=== PATIENT | female | born 1940 | race Caucasian/White ===

== ENCOUNTER → 2019-11-02 15:59 | Outpatient (CLI) | payer MEDICARE, BC, SELFPAY ==
--- NOTE | 2019-11-02 | DI.ECHO.S_ITS ---
[facility]---------+ [facility] +---------+ : : [address] : : : : [id number] : : : : Phone: [phone] : [phone] +---------+ Echocardiogram Report + + :Name: RITA JUAREZ Study Date: 11/02/2019 Height: 63 in : :[facility] Weight: 180 lb : : Gender: Female BSA: 1.8 m2 : :: 1940 Age: 79 yrs BP: 142/86 mmHg: :Reason For Study: Cardiomyopathy : :Ordering Physician: Rowdy : :Morgan Ibarra Performed By: PAOLO : :Referring: ROWDY MERCHANT : + + Interpretation Summary The left ventricle is normal in size and wall thickness. The left ventricular ejection fraction is normal. The right ventricle is normal in size and function. There is mild to moderate mitral regurgitation. This is unchanged. -Overall this limited echocardiogram shows recovery of the LV ejection fraction. Patient is post pacemaker implantation. Procedure: A two-dimensional transthoracic echocardiogram with color flow and Doppler was performed in limited views only. The study quality was technically adequate. Comparison is made with the echocardiogram of 11/25/2018. Limited study for left ventricular function. The patient was in normal sinus rhythm during the exam. Left Ventricle: The left ventricle is normal in size and wall thickness. Left ventricular ejection fraction is estimated to be 55 +/- 5%. The left ventricular ejection fraction is normal. There is a moderate dyssynchronous contraction pattern due to the paced rhythm. Diastolic function could not be accurately assessed due to unobtainable data. Right Ventricle: The right ventricle is normal in size and function. TAPSE 2.0 cm. Atria: There is a pacemaker lead in the right atrium. Mitral Valve: The mitral valve leaflets appear mildly thickened, but open well. There is mild mitral annular calcification. There is mild to moderate mitral regurgitation. Aortic Valve: The aortic valve is trileaflet. The aortic valve opens well. Pericardium/ Pleura There is no pericardial effusion. MMode/2D Measurements & Calculations LVIDd: 5.2 cm RVD1 (basal): 2.8 cm LVIDs: 3.9 cm RVD2 (mid): 2.1 cm FS: 25.3 % TAPSE: 2.0 cm IVSd: 1.0 cm LVPWd: 0.87 cm LV canales. diameter/BSA (cm/m^2): 2.8 LV sys. diameter/BSA (cm/m^2): 2.1 Doppler Measurements & Calculations LVOT Max Jose C: 80.2 cm/sec LV V1 max P.6 mmHg LV V1 VTI: 17.5 cm Electronically signed by: Rowdy Merchant M.D. on Reading Physician:11/06/2019 12:47 PM
== END ==
PROVIDERS: Family Provider Internal Medicine Cardiovascular Disease; PCP Family Medicine; Visit Provider Hospitalist
DX: I34.0 Nonrheumatic mitral (valve) insufficiency (principal); I42.8 Other cardiomyopathies; Z95.0 Presence of cardiac pacemaker
CPT/HCPCS: 93307

== ENCOUNTER → 2021-10-13 08:37 | Outpatient (CLI) | payer MEDICARE, BC, SELFPAY ==
--- NOTE | 2021-10-13 | DI.ECHO.S_ITS ---
[facility] +---------+ [facility] +---------+ : : [address] : [address] : : : : [id number] : : : : Phone: [phone] : [phone] +---------+ Echocardiogram Report + + :Name: RITA JUAREZ Study Date: 10/13/2021 Height: 63 in : :[facility] ReadingLocation: Weight: 183 lb : : Gender: Female BSA: 1.9 m2 : :: 1940 Age: 81 yrs BP: 189/95 mmHg: :Reason For Study: Cardiomyopathy : :Ordering Physician: : :BLAKE^E Performed By: Rafi Leo : :Referring: ALESHA BROWN : + + Interpretation Summary The ejection fraction is estimated to be 55-60%. Diastolic function could not be accurately assessed due to paced rhythm. The right ventricle is normal in size and function. Biatrial enlargement. There is mild mitral regurgitation. There is mild to moderate aortic regurgitation. There is mild tricuspid regurgitation. PASP is approximately 25 to 30 mmHg. Compared to the prior study dated 11/02/2019, no significant change however aortic regurgitation was not evaluated on the prior exam. Procedure: A two-dimensional transthoracic echocardiogram with color flow and Doppler was performed. The study quality was technically adequate. The suprasternal notch views were difficult to obtain and are suboptimal in quality. Comparison is made with the echocardiogram of 11/02/2019. The patient was in normal sinus rhythm during the exam. Left Ventricle: The left ventricle is borderline dilated. There is borderline proximal septal thickening noted. The ejection fraction is estimated to be 55-60%. There is a mild dyssynchronous contraction pattern due to the paced rhythm. Diastolic function could not be accurately assessed due to paced rhythm. Right Ventricle: There is a pacemaker lead in the right ventricle. The right ventricle is normal in size and function. Atria: The left atrium is moderately dilated. There is a catheter/pacemaker lead seen in the right atrium. The right atrium is moderately dilated. There is no Doppler evidence for an interatrial shunt. Mitral Valve: There is mild mitral annular calcification. The mitral valve leaflets appear mildly thickened, but open well. There is mild mitral regurgitation. Aortic Valve: The aortic valve is trileaflet. The aortic valve opens well. There is no aortic valve stenosis. There is mild to moderate aortic regurgitation. Tricuspid Valve: The tricuspid valve is normal. There is mild tricuspid regurgitation. PASP is approximately 25 to 30 mmHg. Pulmonic Valve: The pulmonic valve leaflets are thin and pliable; valve motion is normal. There is trace pulmonic regurgitation. Great Vessels: The aortic root is normal size. The ascending aorta is normal in size. The aortic arch could not be visualized. The IVC is dilated (diameter is greater than 2.1 cm) yet it collapses greater than 50% with a sniff. This suggests a right atrial pressure of 8 mm Hg. Pericardium/ Pleura There is no pericardial effusion. There is no pleural effusion. MMode/2D Measurements & Calculations LVIDd: 5.0 cm LVOT diam: 2.1 cm LVIDs: 3.0 cm Ao root diam: 3.3 cm FS: 40.0 % asc Aorta Diam: 3.3 cm IVSd: 1.1 cm LVPWd: 0.80 cm LV canales. diameter/BSA (cm/m^2): 2.7 LV sys. diameter/BSA (cm/m^2): 1.6 LA A2 area: 26.6 cm2 RA long axis: 7.3 cm LA A4 area: 24.7 cm2 IVC diam: 2.2 cm LA length (vol): 6.6 cm LA vol: 84.1 ml LA vol index: 45.2 ml/m2 LVLs ap4: 5.4 cm LVLd ap2: 6.9 cm LVLs ap2: 5.8 cm TAPSE_phl: 1.8 cm Doppler Measurements & Calculations Ao V2 max: 110.0 cm/sec LVOT Max Jose C: 86.2 cm/sec Ao V2 mean: 81.9 cm/sec LV V1 max P.0 mmHg Ao max P.0 mmHg LV V1 VTI: 20.0 cm Ao mean P.0 mmHg JEN(I,D): 2.2 cm2 Ao V2 VTI: 31.4 cm JNE(V,D): 2.7 cm2 sev ratio: 0.64 JEN indexed to BSA (cm^2/m^2): 1.2 MV E max jose c: 95.5 cm/sec TR max jose c: 214.5 cm/sec MV A max jose c: 51.4 cm/sec TR max P.4 mmHg MV E/A: 1.9 PA V2 max: 53.5 cm/sec Med Peak E' Jose C: 6.1 cm/sec PA V2 mean: 40.6 cm/sec E/E' med: 15.7 PA mean P.0 mmHg Lat Peak E' Jose C: 10.4 cm/sec PA pr(Accel): 38.5 mmHg E/E' lat: 9.2 E/e' average: 12.4 MV dec time: 0.17 sec MR VTI: 254.0 cm SV(LVOT): 69.3 ml AV VR_phl: 0.78 MV P1/2t-pr_phl: 49.0 msec JEN(VTI)/BSA_phl: 1.2 Reading Physician:04:11 PM
--- NOTE | 2021-10-20 11:42 | PM.TREADMILL ---
Cardiac Stress Test Report Referral & Results Date Patient Seen: 10/20/21 Time Patient Seen: 11:43 Requesting provider: Alesha Brown Indication: Cardiomyopathy Rest ECG: Ventricular paced rhythm Procedure Note: After Lexiscan injection had minimal dyspnea; no chest discomfort No significant ST changes on ECG after Lexiscan injection Rare PVC Impression: Normal Lexiscan injection Please note: Actual ECG tracings can be found in the PACS system.
--- NOTE | 2021-10-20 20:27 | DI.NM.S_ITS ---
DATE OF SERVICE: 10/13/2021 PROCEDURE: Pharmacological perfusion study. INDICATION: Fatigue, underlying tachycardia, induced cardiomyopathy, AFib. RADIOPHARMACEUTICAL: 26.3 millicurie technetium-99m Myoview IV was injected at stress and 22.5 millicurie technetium-99m Myoview IV was injected at rest. CARDIAC STRESS: The patient underwent IV Lexiscan perfusion study under the supervision of an attending staff using standard intravenous Lexiscan, as per protocol. The patient remained hemodynamically stable. [place] minimal dyspnea. No chest pain. Baseline rhythm was ventricular paced rhythm with underlying atrial fibrillation. During stress, no new convincing ischemic changes. Rare PVCs. RAW DATA: Raw data breast shadow was seen. GATED STUDY: Stress and resting LV ejection fraction 75 percent without any obvious wall motion abnormalities. Resting end-diastolic volume 113 mL. TID ratio 1.13, which is within normal limits. Lung/heart ratio 0.61, which is abnormal. MYOCARDIAL PERFUSION SCAN: Stress supine and resting supine images were compared to each other. There are no prone images. Resting supine images revealed minimally decreased perfusion of apex. During stress supine, there was a small size, very mildly decreased perfusion of distal anterior wall. CONCLUSION: There is no convincing ischemia or infarction pattern on this study. There is breast shadow seen during both the stress and resting supine images. There are no prone images. There appears to be some shifting breast tissue attenuation artifact causing decreased perfusion in the distal anterior wall on stress supine and at the apex on resting supine. Those segments have normal contractility, which goes against the diagnosis of previous transmural myocardial infarction. No transient ischemic dilatation. Resting end-diastolic volume 113 mL and stress left ventricular ejection fraction 75 percent. However, lung-heart ratio is abnormal at 0.61, suggestive of likely elevated left ventricular filling pressure. As far as perfusion scan is concerned, this is a low-risk myocardial perfusion scan. Clinical correlation is recommended. DayanaNancie - Ro/devonte doc#: [id number]/job#: [id number] dd: 10/20/2021 17:45:00 dt: 10/20/2021 20:16:00 DICTATING MD/COPIES TO: Inna Granados MD COPIES MNE: ALEX;
== END ==
PROVIDERS: Family Provider Internal Medicine Cardiovascular Disease; PCP Internal Medicine; Referring Provider Internal Medicine Cardiovascular Disease; Visit Provider Internal Medicine Cardiovascular Disease
DX: I42.8 Other cardiomyopathies (principal); I08.3 Combined rheumatic disorders of mitral, aortic and tricuspid valves
CPT/HCPCS: 78452; 93017; 93306; A9502; J2785

== ENCOUNTER → 2023-06-21 12:31 | Outpatient (CLI) | payer MEDICARE, OTHER, SELFPAY ==
--- NOTE | 2023-06-21 | DI.ECHO.S_ITS ---
[facility]---------+ [facility] +---------+ : : [address] : [address] : : : : [id number] : : : : Phone: [phone] : : [phone] +---------+ Echocardiogram Report + + :Name: RITA JUAREZ Study Date: 06/21/2023 Height: 63.5 in: :[facility] ReadingLocation: Weight: 180 lb : : Gender: Female BSA: 1.9 m2 : :: 1940 Age: 82 yrs BP: 174/94 mmHg: :Reason For Study: CARDIOMYOPATHY : :Ordering Physician: ANTONIO, : :SACHA Performed By: Shannon Brandt : :Referring: SACHA ALVAREZ : + + Interpretation Summary The ejection fraction is estimated to be 55-60%. Diastolic function could not be accurately assessed due to paced rhythm. The left atrium is severely dilated. The right ventricle is normal in size and function. The right atrium is moderate to severely dilated. There is mild to moderate mitral regurgitation. There is mild to moderate aortic regurgitation. There is mild tricuspid regurgitation. The right ventricular systolic pressure is estimated to be at least 28 mmHg based on an estimated right atrial pressure of 3 mm Hg. Compared to the prior study dated 10/13/2021, no significant change. Procedure: A two-dimensional transthoracic echocardiogram with color flow and Doppler was performed. The study quality was technically adequate. Comparison is made with the echocardiogram of 10/13/2021. The heart rate ranged between 60 bpm during the study. The patient has a paced rhythm. Left Ventricle: The left ventricle is normal in size and wall thickness. The ejection fraction is estimated to be 55-60%. Diastolic function could not be accurately assessed due to paced rhythm. Right Ventricle: The right ventricle is normal in size and function. There is a pacemaker lead in the right ventricle. Atria: The left atrium is severely dilated. The right atrium is moderate to severely dilated. There is no Doppler evidence for an interatrial shunt. Mitral Valve: There is mild mitral annular calcification. The mitral valve leaflets appear mildly thickened, but open well. There is mild to moderate mitral regurgitation. Aortic Valve: The aortic valve is trileaflet. The aortic valve opens well. There is no aortic valve stenosis. There is mild to moderate aortic regurgitation. Tricuspid Valve: The tricuspid valve is normal. There is mild tricuspid regurgitation. The right ventricular systolic pressure is estimated to be at least 28 mmHg based on an estimated right atrial pressure of 3 mm Hg. Pulmonic Valve: The pulmonic valve leaflets are thin and pliable; valve motion is normal. There is mild pulmonic regurgitation. Great Vessels: The aortic root is normal size. The dimensions of the ascending aorta are normal. The IVC is of normal diameter and collapses greater than 50% with a sniff. This suggests a low right atrial pressure of 3 mm Hg. Pericardium/ Pleura There is no pericardial effusion. There is no pleural effusion. MMode/2D Measurements & Calculations LVIDd: 5.2 cm LVOT diam: 2.1 cm LVIDs: 3.8 cm Ao root diam: 3.5 cm FS: 28.0 % asc Aorta Diam: 3.7 cm EPSS: 0.88 cm IVSd: 0.95 cm LVPWd: 0.97 cm LV canales. diameter/BSA (cm/m^2): 2.8 LV sys. diameter/BSA (cm/m^2): 2.0 LA A2 area: 29.3 cm2 RA long axis: 6.7 cm LA A4 area: 28.6 cm2 RA area: 23.9 cm2 LA length (vol): 6.9 cm RA vol: 72.6 ml LA vol: 102.4 ml RA : 39.0 ml/m2 LA vol index: 55.0 ml/m2 IVC diam: 2.0 cm RVD1 (basal): 2.8 cm RVD2 (mid): 2.1 cm TAPSE: 2.1 cm Doppler Measurements & Calculations Ao V2 max: 120.2 cm/sec LVOT Max Jose C: 78.8 cm/sec Ao V2 mean: 80.0 cm/sec LV V1 max P.5 mmHg Ao max P.8 mmHg LV V1 VTI: 17.7 cm Ao mean P.0 mmHg JEN(I,D): 2.3 cm2 Ao V2 VTI: 26.8 cm JEN(V,D): 2.3 cm2 sev ratio: 0.66 JEN indexed to BSA (cm^2/m^2): 1.2 AI P1/2t: 682.1 msec AI dec slope: 195.2 cm/sec2 MV E max jose c: 83.4 cm/sec TR max jose c: 250.9 cm/sec MV A max jose c: 29.2 cm/sec TR max P.2 mmHg MV E/A: 2.9 PA V2 max: 59.6 cm/sec Med Peak E' Jose C: 7.1 cm/sec PA V2 mean: 41.5 cm/sec E/E' med: 11.7 PA mean P.77 mmHg Lat Peak E' Jose C: 10.1 cm/sec PA pr(Accel): 27.6 mmHg E/E' lat: 8.3 E/e' average: 10.0 MV dec time: 0.21 sec SV(LVOT): 62.3 ml Reading Physician:02:06 PM
== END ==
PROVIDERS: Family Provider Internal Medicine Cardiovascular Disease; PCP Registered Nurse; Referring Provider Nurse Practitioner Acute Care; Visit Provider Nurse Practitioner Acute Care
DX: Z86.79 Personal history of other diseases of the circulatory system (principal); I08.3 Combined rheumatic disorders of mitral, aortic and tricuspid valves
CPT/HCPCS: 93306

== ENCOUNTER 2024-08-10 14:44 | Outpatient (CLI) | payer MEDICARE, OTHER, SELFPAY ==
[2024-08-10] VITALS (13 sets, daily range): BP systolic 173–220; BP diastolic 79–98; PULSE 60–64; RESP 11–20; TEMP 36.3; O2SAT 97–100
--- NOTE | 2024-08-10 15:39 | DI.RAD.S_ITS ---
PROCEDURE: PAIN L/S TRANSFORAMINAL INJECT INDICATIONS: Right L4/5 TFESI COMPARISON: None. FINDINGS: Fluoroscopic spot filming was performed to verify placement of spinal needles at the L4-5 level(s), as labeled on the films. Appropriate location(s) of the needle tip(s) was confirmed by injection of iodinated contrast. IMPRESSION: Needle and contrast localization overlying L4-5. Dictated by: Lizbeth Kang M.D. on 08/14/2024 at 20:45 Approved by: Lizbeth Kang M.D. on 08/14/2024 at 20:46
--- NOTE | 2024-08-10 16:06 | PM.PROC.IR.1 ---
Date/Time/Diagnoses Date of procedure: 08/10/24 Time of procedure: 16:06 Pre-procedure diagnosis: 1. HNP WITH RADICULAR FEATURES, 2. MULTILEVEL CENTRAL STENOSIS, Post-procedure diagnosis: same Procedure Notes Procedure: 1. FLUOROSCOPICALLY GUIDED CONTRAST CONTROLLED INTERLAMINAR EPIDURAL STEROID INJECTION -L4/5 Indications: Nancie is referred by PATTERN DESIGNERAra Cook for treatment of Bilateral Foraminal Stenosis R>L LE symptoms. Physician: Jonathan Sanchez Total Fluoroscopy time (seconds): 11 Total sedation minutes: 11 Complications: none Procedure in detail & Post-procedure care: FINDINGS Multilevel Central Spinal Stenosis with Nerve Root Compression DESCRIPTION OF PROCEDURE Fluoroscopically guided, contrast-controlled L4/5 translaminar epidural steroid injection. Following review of allergy and review of potential side effects and complications, including, but not necessarily limited to, infection, allergic reaction, local tissue breakdown, temporary as well as permanent nerve injury, paralysis, stroke and possible , the patient indicated that the patient understood and agreed to proceed. An informed consent document was signed by the patient, witnessed by a nurse, and placed in the patient's chart. Additionally, other treatment options including modalities, medications, and physical therapy were reviewed with the patient. After review of previous anaesthesic history and IV conscious sedation the patient was deemed safe to proceed with today?s procedure with IV conscious sedation as ASA class II designation. Safety time-out was performed to confirm patient ID, procedure to be performed and site of procedure. IV sedation was accomplished with a combination of 2mg of Versed and 50mcg of Fentanyl was administered by the RN after DO order, titrated to patient comfort during the course of the procedure while the patient remained responsive to all verbal commands In the prone position, following sterile prep and drape of the lumbar region, the L4/5 translaminar space was identified fluoroscopically. The skin was anesthetized via a 25-gauge, 1.5inch needle with 1% lidocaine solution. At this point, a 22-gauge short bevel spinal needle was atraumatically introduced and advanced under fluoroscopic guidance into the region of the L4/5 translaminar space. Depth was confirmed on lateral view. Radiological data, including multiple fluoroscopic views of the lumbar spine, reveal a spinal needle at the L4/5 translaminar space. Lateral views then show placement of the needle in the epidural space. Subsequent views show contrast material flowing superiorly and inferiorly in the epidural space. No vascular or intrathecal uptake is observed. At this point, using loss of resistance technique with saline and air, the epidural space was entered. This was confirmed following negative aspiration with injection of approximately 1.5cc of Isovue 200, showing excellent epidural flow without vascular or intrathecal uptake. At this point, 1cc of 1% lidocaine solution combined with 2cc or 10mg of dexamethasone and 6mg betamethasone was injected without incident. The patient tolerated the procedure well without signs or symptoms of complications prior to transfer to the recovery area continued monitoring without incident. The patient was then transferred to the recovery area where they were observed for an appropriate period of time after the injection. The patient reported a VAS score of 6 prior to the procedure and a post-procedure VAS of 0. POST OP INSTRUCTIONS The patient was provided a Pain Log to continue to record their response to the target-specific procedure prior to follow-up visit with their referring physician. Additionally, specific post-injection care instructions and a contact number to our office were provided if concerns arise regarding possible complications associated with the procedure are suspected.
[2024-08-10] MEDS: MIDAZOLAM 2 MG/2 ML VIAL 1 MG IV (16:27)
[2024-08-10] MEDS: DEXAMETHASONE 10 MG/ML VIAL INJ (16:29)
[2024-08-10] MEDS: BUPIVACAINE 0.25% (PF) VIAL 2 ML INJ (16:29)
[2024-08-10] MEDS: iopamidoL 15 ML VIAL 3 ML INJ (16:30)
[2024-08-10] MEDS: BETAMETHASONE 30 MG/5 ML MDV 12 MG INJ (16:30)
--- NOTE | 2024-08-10 16:44 | P.PCN_ITS ---
Date/Time/Diagnoses Date of procedure: 08/10/24 Time of procedure: 16:45 Pre-procedure diagnosis: 1. FORAMINAL STENOSIS WITH LE SYMPTOMS Post-procedure diagnosis: same Procedure Notes Procedure: 1. FLUOROSCOPICALLY GUIDED CONTRAST CONTROLLED TRANSFORAMINAL EPIDURAL STEROID INJECTION - RIGHT L4/5 TFESI Indications: Nancie is referred by SPORTS MANAGEMENT PROFESSORAra Cook for treatment of Foraminal Stenosis with Right LE Symptoms Physician: Jonathan Sanchez Total Fluoroscopy time (seconds): 11 Total sedation minutes: 14 Complications: none Procedure in detail & Post-procedure care: FINDINGS Foraminal Nerve Root Compression secondary to disc disease and facet hypertrophy DESCRIPTION OF PROCEDURE Following review of allergy and review of potential side effects and complications, including, but not necessarily limited to, infection, allergic reaction, local tissue breakdown, stroke, temporary or permanent nerve injury, paralysis, and possible , the patient indicated that the patient understood and agreed to proceed. An informed consent document was signed by the patient, witnessed by a nurse, and placed in the patient's chart. Additionally, other treatment options including medications, modalities, and physical therapy were reviewed with the patient. After review of previous anaesthesic history and IV conscious sedation the patient was deemed safe to proceed with today?s procedure with IV conscious sedation as ASA class II designation. Safety time-out was performed to confirm patient ID, procedure to be performed and site of procedure. IV sedation was accomplished with a combination of 1mg of Versed was administered by the RN after DO order, titrated to patient comfort during the course of the procedure while the patient remained responsive to all verbal commands In the prone position following sterile prep and drape of the lumbar region, the right L4/5 posterior neuroforamen was identified fluoroscopically. The skin was anesthetized via a 25-gauge 1.5-inch needle with 1% lidocaine solution. At this point, a 25-gauge 3.5-inch spinal needle was atraumatically introduced and advanced under fluoroscopic guidance through the posterior right L4/5 neuroforamen to approximately the anterior aspect of the canal. Depth was confirmed on lateral view. Following negative aspiration, injection of approximately 1.5cc of Isovue 200 under live fluoroscopy in the AP view co nfirmed excellent flow along the nerve root, into the epidural space without vascular or intrathecal uptake observed Radiological data, including multiple fluoroscopic views of the lumbosacral spin e, reveal a spinal needle at the right L4/5 posterior neuroforamen. Subsequent views show flow of contrast material flowing superiorly and inferiorly along the nerve root confirming epidural flow. Subsequently, a test dose of 1.5 cc of 1% lidocaine solution was administered and patient was observed for two minutes for signs or symptoms of complications, including abdominal pain, shortness of breath, bilateral upper or lower extremity weakness, nausea and vomiting, prior to steroid injection. At this point, a total of 2cc or 10mg of dexamethasone and 6mg of betamethasone was injected without incident. The procedure tolerated the procedure well without signs or symptoms of complications prior to transfer to the recovery area continued monitoring without incident. The patient was then transferred to the recovery area where they were observed for an appropriate time after the injection. The patient reported a VAS score of 7 prior to the procedure and a post- procedure VAS of 0. POST OP INSTRUCTIONS The patient was provided a Pain Log to continue to record their response to the target-specific procedure prior to follow-up visit with their referring physician. Additionally, specific post-injection care instructions and a contact number to our office were provided if concerns arise regarding possible complications associated with the procedure are suspected.
--- NOTE | 2024-08-10 17:24 | PC.NURSE ---
1717 Patient's mobility checked by standing up from recliner and taking steps in place. Patient was able to do that without incidence. This nurse then had the patient take several steps forward and then back. Patient's mobility back to baseline. Dr. Sanchez notified. Ok to Discharge per Dr. Sanchez.
== END 2024-08-10 17:19 | disposition home or self-care (01) ==
PROVIDERS: Family Provider Internal Medicine Cardiovascular Disease; PCP Registered Nurse; Referring Provider Physical Medicine & Rehabilitation; Visit Provider Physical Medicine & Rehabilitation
DX: M48.061 Spinal stenosis, lumbar region without neurogenic claudication (principal); M51.16 Intervertebral disc disorders with radiculopathy, lumbar region; M47.26 Other spondylosis with radiculopathy, lumbar region
CPT/HCPCS: 64483; 99152; J0702; J1100; J2250; J3490

== ENCOUNTER 2024-12-21 12:18 | Outpatient (CLI) | payer MEDICARE, OTHER, SELFPAY ==
[2024-12-21] VITALS (8 sets, daily range): BP systolic 161–196; BP diastolic 76–91; PULSE 60–64; RESP 14–18; TEMP 36.4; O2SAT 95–100
[2024-12-21] MEDS: iopamidoL 15 ML VIAL 3 ML INJ (13:39)
[2024-12-21] MEDS: BUPIVACAINE 0.5% (PF) 10 ML VIAL 5 ML INJ (13:39)
[2024-12-21] MEDS: MIDAZOLAM 2 MG/2 ML VIAL IV (13:41)
[2024-12-21] MEDS: LIDOCAINE 1% 20 ML 5 ML INJ (13:43)
--- NOTE | 2024-12-21 13:49 | PM.PROC.IR.1 ---
Date/Time/Diagnoses Date of procedure: 12/21/24 Time of procedure: 13:49 Pre-procedure diagnosis: 1. FACET ARTHROPATHY Post-procedure diagnosis: same Procedure Notes Procedure: 1. BILATERAL- L4, L5 and S1 DIAGNOSTIC MB BLOCKS with LA Anesthetic Indications: Nancie is referred by KAYLEIGH Cook for treatment of Bilateral Axial LBP. Physician: Jonathan Sanchez Total Fluoroscopy time (seconds): 11 Total sedation minutes: 11 Complications: none Procedure in detail & Post-procedure care: DESCRIPTION OF PROCEDURE Fluoroscopically guided, contrast-controlled bilateral L4, L5 and S1 medial branch blocks with 0.5cc of 0.5% Marcaine. Following review of allergy and review of potential side effects and complications, including, but not necessarily limited to, infection, allergic reaction, local tissue breakdown, nerve injury, paralysis, stroke and possible , the patient indicated that the patient understood and agreed to proceed. An informed consent document was signed by the patient, witnessed by a nurse, and placed in the patient's chart. After review of previous anaesthesic history and IV conscious sedation the patient was deemed safe to proceed with today's procedure with IV conscious sedation as ASA class II designation. Safety time-out was performed to confirm patient ID, procedure to be performed and site of procedure. IV sedation was accomplished with a combination of 2mg of Versed was administered by the RN after DO order, titrated to patient comfort during the course of the procedure while the patient remained responsive to all verbal commands In the prone position, following sterile prep and drape of the lumbar region, the right L4, L5 and S1 anatomical location of the medial branch of the dorsal ramus was identified fluoroscopically. Subsequently an anesthetic skin wheal using 1% lidocaine solution was initiated at each of the anatomical spots. Subsequently then a 22-gauge 3.5-inch spinal needle was atraumatically introduced and advanced under fluoroscopic guidance at each of the corresponding sites at the right L4, L5 and S1 MB. After negative aspiration, 0.2cc of Isovue 200 was injected, confirming placement without vascular or intrathecal uptake. Subsequently then 0.5cc of 0.5% Marcaine solution was injected at each of the corresponding sites at the right L4, L5 and S1 medial branch locations. The identical procedure was replicated on the left. The patient tolerated the procedure well without signs or symptoms of complications prior to transfer to the recovery area continued monitoring without incident. Post-procedure, the patient was monitored initiating provocative activities to measure the amount of relief from block of the facetogenic pain. The patient reported a VAS of 7 prior to the procedure and a post-procedure VAS of 1. It has been a pleasure to assist in the diagnostic and therapeutic care of your patient. POST OP INSTRUCTIONS The patient was provided with a Pain Log to complete over the next several hours and subsequent days prior to the patient's follow up with the ordering physician. 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 The patient is aware, was provided, once again, with a Pain Log and will follow up with the referring physician for review and clinical correlation
== END 2024-12-21 14:12 | disposition home or self-care (01) ==
PROVIDERS: Family Provider Internal Medicine Cardiovascular Disease; PCP Registered Nurse; Referring Provider Physical Medicine & Rehabilitation; Visit Provider Physical Medicine & Rehabilitation
DX: M47.816 Spondylosis without myelopathy or radiculopathy, lumbar region (principal); M47.817 Spondylosis without myelopathy or radiculopathy, lumbosacral region
CPT/HCPCS: 64493; 64494; 99152; J2250

== ENCOUNTER 2025-04-10 12:54 | Outpatient (CLI) | payer MEDICARE, OTHER, SELFPAY ==
[2025-04-10] VITALS (10 sets, daily range): BP systolic 161–205; BP diastolic 76–88; PULSE 60–61; RESP 14–18; TEMP 36.3; O2SAT 97–100
[2025-04-10] MEDS: MIDAZOLAM 2 MG/2 ML VIAL IV (14:09)
[2025-04-10] MEDS: LIDOCAINE 2% INJ MDV 20ML 5 ML INJ (14:13)
[2025-04-10] MEDS: LIDOCAINE 1% 20 ML 5 ML INJ (14:15)
--- NOTE | 2025-04-10 14:26 | PM.PROC.IR.1 ---
Date/Time/Diagnoses Date of procedure: 04/10/25 Time of procedure: 14:26 Pre-procedure diagnosis: 1. FACET ARTHROPATHY Post-procedure diagnosis: same Procedure Notes Procedure: 1. BILATERAL- L4, L5 and S1 DIAGNOSTIC MB BLOCKS with SA Anesthetic Indications: Nancie is referred by Dr. Cook for treatment of Bilateral Axial LBP. Physician: Jonathan Sanchez Total Fluoroscopy time (seconds): 9 Total sedation minutes: 12 Complications: none Procedure in detail & Post-procedure care: DESCRIPTION OF PROCEDURE Fluoroscopically guided, contrast-controlled bilateral L4, L5 and S1 medial branch blocks with 0.5cc of 2% Lidocaine. Following review of allergy and review of potential side effects and complications, including, but not necessarily limited to, infection, allergic reaction, local tissue breakdown, nerve injury, paralysis, stroke and possible , the patient indicated that the patient understood and agreed to proceed. An informed consent document was signed by the patient, witnessed by a nurse, and placed in the patient's chart. After review of previous anaesthesic history and IV conscious sedation the patient was deemed safe to proceed with today's procedure with IV conscious sedation as ASA class II designation. Safety time-out was performed to confirm patient ID, procedure to be performed and site of procedure. IV sedation was accomplished with a combination of 2mg of Versed was administered by the RN after DO order, titrated to patient comfort during the course of the procedure while the patient remained responsive to all verbal commands In the prone position, following sterile prep and drape of the lumbar region, the right L4, L5 and S1 anatomical location of the medial branch of the dorsal ramus was identified fluoroscopically. Subsequently an anesthetic skin wheal using 1% lidocaine solution was initiated at each of the anatomical spots. Subsequently then a 22-gauge 3.5-inch spinal needle was atraumatically introduced and advanced under fluoroscopic guidance at each of the corresponding sites at the right L4, L5 and S1 MB. After negative aspiration, 0.2cc of Isovue 200 was injected, confirming placement without vascular or intrathecal uptake. Subsequently then 0.5cc of 2% Lidocaine solution was injected at each of the corresponding sites at the right L4, L5 and S1 medial branch locations. The identical procedure was replicated on the left. The patient tolerated the procedure well without signs or symptoms of complications prior to transfer to the recovery area continued monitoring without incident. Post-procedure, the patient was monitored initiating provocative activities to measure the amount of relief from block of the facetogenic pain. The patient reported a VAS of 7 prior to the procedure and a post-procedure VAS of 1. It has been a pleasure to assist in the diagnostic and therapeutic care of your patient. POST OP INSTRUCTIONS The patient was provided with a Pain Log to complete over the next several hours and subsequent days prior to the patient's follow up with the ordering physician. If the patient has pediatrician active practice relief to the solution applied, then they may be a candidate for medial branch rhizotomy. The patient is aware, was provided, once again, with a Pain Log and will follow up with the referring physician for review and clinical correlation
== END 2025-04-10 14:57 | disposition home or self-care (01) ==
LOC: RAD 12:55
PROVIDERS: Family Provider Internal Medicine Cardiovascular Disease; PCP Registered Nurse; Referring Provider Physical Medicine & Rehabilitation; Visit Provider Physical Medicine & Rehabilitation
DX: M47.816 Spondylosis without myelopathy or radiculopathy, lumbar region (principal); M47.817 Spondylosis without myelopathy or radiculopathy, lumbosacral region
CPT/HCPCS: 64493; 64494; 99152; J2250

== ENCOUNTER 2025-08-21 12:58 | Outpatient (CLI) | payer MEDICARE, OTHER, SELFPAY ==
[2025-08-21] VITALS (9 sets, daily range): BP systolic 160–217; BP diastolic 77–95; PULSE 60–62; RESP 16–20; TEMP 36.4; O2SAT 96–99
[2025-08-21] MEDS: MIDAZOLAM 2 MG/2 ML VIAL IV (14:07)
[2025-08-21] MEDS: BETAMETHASONE 30 MG/5 ML MDV 12 MG INJ (14:13)
--- NOTE | 2025-08-21 14:21 | PM.PROC.IR.1 ---
Date/Time/Diagnoses Date of procedure: 08/21/25 Time of procedure: 14:21 Pre-procedure diagnosis: Sacroiliac joint pain/DJD Post-procedure diagnosis: same Procedure Notes Procedure: Fluoroscopically guided contrast controlled right sacroiliac joint injection Indications: Nancie is referred by Dr. Morales for treatment of right sacroiliac joint DJD Physician: Jonathan Sanchez Total Fluoroscopy time (seconds): 10 Total sedation minutes: 10 Complications: none Procedure in detail & Post-procedure care: DESCRIPTION OF PROCEDURE Fluoroscopically guided, contrast controlled right sacroiliac joint injection Following review of allergies and review of potential side effects and complications, including, but not necessarily limited to, infection, allergic reaction, local tissue breakdown, temporary as well as permanent nerve injury, paralysis, stroke and possible , the patient indicated that they understood and agreed to proceed. An informed consent was signed by the patient, witnessed by a nurse, and placed in the patient's chart. Additionally, other treatment options including modalities, medications, and physical therapy were reviewed with the patient. After review of previous anaesthesic history and IV conscious sedation the patient was deemed safe to proceed with today?s procedure with IV conscious sedation as ASA class II designation. Safety time-out was performed to confirm patient ID, procedure to be performed and site of procedure. IV sedation was accomplished with a combination of 2mg of Versed was administered by the RN after DO order, titrated to patient comfort during the course of the procedure while the patient remained responsive to all verbal commands In the prone position following sterile prep and drape of the pelvic region, the hyper lucency on in the inferior aspect of the sacroiliac joint was identified fluoroscopically the skin was anesthetized be a 25 gauge 1 eventual with approximately 2 cc of 1% lidocaine solution. At this point, a 22 gauge 3 in spinal needle was atraumatically introduced and advanced under fluoroscopic guidance into the inferior aspect of the right sacroiliac joint. Following negative aspiration, approximately 0.3cc of Isovue-300 was injected confirming intra-articular placement without vascular uptake. Radiographic data, including multiple fluoroscopic views of the pelvis, reveals a spinal needle in the sacroiliac joint hyper lucent zone. Subsequent view show flow contrast tear superiorly and inferiorly within the joint capsule without vascular intrathecal uptake. At this point a total of 1cc of 0.5% Marcaine was combined with 2cc of 12mg of betamethasone was injected without incident. The procedure tolerated the procedure well without signs or symptoms of complications prior to transfer to the recovery area continued monitoring without incident. The patient was then transferred to the recovery area with a bur observed for an appropriate time after the injection. The patient reverted a vas score of 7 prior to the procedure and post-procedure vas of 1. POSTOP INSTRUCTIONS The patient was provided with a pain like to continue to record the patient's response to the target specific procedure prior to the patient's follow-up visit with the referring physician. Additionally, specific post injection care instructions and a contact number to our office were provided if concerns arise regarding the possible complications associated with procedure are suspected.
== END 2025-08-21 14:41 | disposition home or self-care (01) ==
PROVIDERS: Family Provider Internal Medicine Cardiovascular Disease; PCP Registered Nurse; Referring Provider Registered Nurse; Visit Provider Physical Medicine & Rehabilitation
DX: M53.3 Sacrococcygeal disorders, not elsewhere classified (principal); M46.1 Sacroiliitis, not elsewhere classified; M41.126 Adolescent idiopathic scoliosis, lumbar region
CPT/HCPCS: 27096; 99152; J0702; J2250

== ENCOUNTER → 2025-09-26 11:15 | Outpatient (CLI) | payer MEDICARE, OTHER, SELFPAY ==
--- NOTE | 2025-09-26 11:23 | DI.RAD.S_ITS ---
PROCEDURE: XR LUMBAR SPINE MIN 4V INDICATIONS: progressive LBP TECHNIQUE: 5 views of the lumbar spine were acquired, including bilateral oblique views. COMPARISON: Outside Facility, CR, XR LUMBAR SPINE MIN 4V, 05/16/2024, 9:47. FINDINGS: Bones: 5 nonrib-bearing vertebrae are present. Lumbar dextroscoliosis centered at L3. Straightening of the usual lumbar lordosis. Multilevel moderate disc space narrowing, from L2-3 through L5-S1 with multilevel advanced facet arthrosis.. No vertebral body compression fractures. No suspicious bony lesions. Soft tissues: Overlying bowel gas pattern is normal. No suspicious soft tissue calcifications. Oblique images: No pars defects. IMPRESSION: Multilevel moderate spondylosis with inferior lumbar facet arthrosis. Lumbar dextroscoliosis centered at L3. Dictated by: Darwin Garza M.D. on 09/26/2025 at 18:11 Approved by: Darwin Garza M.D. on 09/26/2025 at 18:12
== END ==
PROVIDERS: PCP Registered Nurse; Referring Provider Physical Medicine & Rehabilitation; Visit Provider Physical Medicine & Rehabilitation
DX: M47.816 Spondylosis without myelopathy or radiculopathy, lumbar region (principal); M48.062 Spinal stenosis, lumbar region with neurogenic claudication; M53.3 Sacrococcygeal disorders, not elsewhere classified; M41.9 Scoliosis, unspecified
CPT/HCPCS: 72110

== ENCOUNTER → 2025-09-26 11:21 | Outpatient (CLI) | payer MEDICARE, OTHER, SELFPAY ==
--- NOTE | 2025-09-26 11:23 | DI.CT.S_ITS ---
PROCEDURE: CT LUMBAR SPINE WO CON INDICATIONS: Spinal Stenosis TECHNIQUE: Noncontrast 3 mm thick sections acquired from the T12 level to the sacrum. Sagittal and coronal reformats were constructed. For radiation dose reduction, the following was used: automated exposure control. COMPARISON: Outside Facility, CT, CT LUMBAR SPINE WO CON, 07/06/2024, 13:04. FINDINGS: Image quality: Excellent. Bones: Mild S-shaped lumbar curvature. No sagittal listhesis. No compression deformity. No suspicious lytic or blastic osseous lesion. T12-L1: No bony spinal canal or neural foraminal stenosis. L1-L2: No bony spinal canal or neural foraminal stenosis. L2-L3: Progressive mild spinal canal stenosis due to a diffuse disc bulge. Progressive mild bilateral neural foraminal stenosis due to foraminal disc bulge and facet arthrosis. L3-L4: Progressive mild to moderate spinal canal stenosis due to diffuse disc bulge, ligamentum flavum thickening, and facet arthrosis. Left moderate and right mild neural foraminal stenosis due to asymmetric foraminal disc bulge and facet arthrosis. L4-L5: Similar severe spinal canal stenosis due to diffuse disc bulge, ligamentum flavum thickening, and facet arthrosis. Bilateral moderate to severe neural foraminal stenosis due to foraminal disc bulge and facet arthrosis. L5-S1: Mild spinal canal stenosis due to a diffuse disc bulge. Right severe and left moderate neural foraminal stenosis due to foraminal disc bulge and facet arthrosis. Soft tissues: No retroperitoneal masses or hematomas. Visualized aorta is normal in caliber. Diverticulosis without diverticulitis. IMPRESSION: Multilevel spinal canal stenosis reaches severe at L4-5. Multilevel neural foraminal stenosis reaches moderate to severe bilaterally at L4-5 and severe on the right at L5-S1. Dictated by: Darwin Garza M.D. on 09/26/2025 at 17:54 Approved by: Darwin Garza M.D. on 09/26/2025 at 17:59
== END ==
PROVIDERS: PCP Registered Nurse; Referring Provider Physical Medicine & Rehabilitation; Visit Provider Physical Medicine & Rehabilitation
DX: M48.062 Spinal stenosis, lumbar region with neurogenic claudication (principal); M48.07 Spinal stenosis, lumbosacral region; M47.816 Spondylosis without myelopathy or radiculopathy, lumbar region; M53.3 Sacrococcygeal disorders, not elsewhere classified; M47.817 Spondylosis without myelopathy or radiculopathy, lumbosacral region; M51.369 Other intervertebral disc degeneration, lumbar region without mention of lumbar back pain or lower extremity pain; M51.379 Other intervertebral disc degeneration, lumbosacral region without mention of lumbar back pain or lower extremity pain
CPT/HCPCS: 72110; 72131